=== PATIENT | female | born 1935 | race African-American/Black ===

== ENCOUNTER 2022-11-14 16:07 | Emergency (ER) | payer OTHER, MEDICAID ==
[~2022-11-14] VITALS: Ht 167.6 cm; Wt 65.8 kg
[2022-11-14 17:26] VITALS: BP 156/102
--- NOTE | 2022-11-14 17:36 | NUR ---
DAUGHTER STATES PT RELUCTANT SEE PMD'S THROUGHOUT HER LIFE. SKEPTICAL OF HEALTH CARE. DAUGHTER STATES SUDDEN LOSS OF VISION COMPLETELY 3 YEARS AGO. PT REFUSED TO BE SEEN BY DOCTOR.
[2022-11-14] MEDS ORDERED: NACL 0.9% 1,000 ML IV ONE (18:50)
--- NOTE | 2022-11-14 19:36 | NUR ---
PT TAKEN TO BED 1
[2022-11-14 19:47] LABS: BASOPHILS % (AUTO) 0.4 % (0.0-2.0); EOSINOPHILS % (AUTO) 0.2 % (0.0-4.0); HEMATOCRIT 43.6 % (36-48); HEMOGLOBIN 14.6 g/dL (12.0-16.0); LYMPHOCYTES # (AUTO) 1.5 K/uL (2.5-16.5); LYMPHOCYTES % (AUTO) 15.9 % (20.5-51.1); MEAN CORPUSCULAR HEMOGLOBIN 30 pg (27-31); MEAN CORPUSCULAR HGB CONC 33 g/dL (33-37); MEAN CORPUSCULAR VOLUME 90.8 fL (80-94); MONOCYTES # (AUTO) 0.6 K/uL (0.8-1.0); MONOCYTES % (AUTO) 6.2 % (1.7-9.3); NEUTROPHILS # (AUTO) 7.3 K/uL (1.8-7.7); NEUTROPHILS % (AUTO) 77.3 % (42.2-75.2); PLATELET COUNT (AUTO) 177 K/uL (140-450); RED CELL DISTRIBUTION WIDTH 13.8 % (11.6-13.7); WHITE BLOOD COUNT (AUTO) 9.5 K/uL (4.8-10.8)
--- NOTE | 2022-11-14 20:01 | NUR ---
Patient resting in bed, A/Ox4, chest rise and fall symmetrical, no c/o pain or s/s of distress, patient on monitor.
[2022-11-14 20:06] LABS: ALBUMIN 3.8 g/dL (3.4-5.0); ANION GAP 12.2 (8-16); ASPARTATE AMINOTRANSFERASE 115 U/L (15-37); CHLORIDE 105 mmol/L (98-107); CREATININE 0.7 mg/dL (0.6-1.3); GLUCOSE 109 mg/dL (74-106); POTASSIUM 3.2 mmol/L (3.5-5.1); SODIUM SERUM 143 mmol/L (136-145); TOTAL BILIRUBIN 0.9 mg/dL (0.0-1.0); UREA NITROGEN, BLOOD 20 mg/dL (7-18)
[2022-11-14 22:02] LABS: APPEARANCE,URINE CLEAR (CLEAR); BILIRUBIN,URINE NEGATIVE (NEGATIVE); BLOOD, URINE NEGATIVE (NEGATIVE); COLOR,URINE YELLOW (YELLOW); LEUKOCYTE ESTERASE ,URINE 1+ (NEGATIVE); NITRITE, URINE NEGATIVE (NEGATIVE); UGLUCOSE NEGATIVE (NEGATIVE)
--- NOTE | 2022-11-14 22:30 | NUR ---
Patient resting in bed, A/Ox4, chest rise and fall symmetrical, no c/o pain or s/s of distress, patient on monitor.
[2022-11-14] MEDS ORDERED: cefTRIAXone 1,000 MG VIAL ONE (22:54)
--- NOTE | 2022-11-14 23:00 | NUR ---
Patient resting in bed, A/Ox4, chest rise and fall symmetrical, no c/o pain or s/s of distress, patient on monitor.
--- NOTE | 2022-11-14 23:00 | NUR ---
Dr. Vallecillo verbally informed patient's left first toe is purple in color. Dr. Vallecillo verbalized understanding.
--- NOTE | 2022-11-14 23:21 | NUR ---
Dr. Pearce at bedside speaking with patient. Addendum: 11/14/22 at [id number] Pearce at bedside speaking with patient's daughter and patient.
--- NOTE | 2022-11-15 00:08 | NUR ---
Patient resting in bed, A/Ox4, chest rise and fall symmetrical, no c/o pain or s/s of distress, patient on monitor.
[2022-11-15] MEDS ORDERED: FURO-572 PO (01:58)
[2022-11-15] MEDS ORDERED: NAPR-1704 PO ×2 (01:58→02:52)
[2022-11-15] MEDS ORDERED: PANT40EC PO (01:58)
[2022-11-15] MEDS ORDERED: SPIR50TA PO (01:58)
--- NOTE | 2022-11-15 02:30 | NUR ---
Patient resting in bed, A/Ox4, chest rise and fall symmetrical, no c/o pain or s/s of distress, patient on monitor.
[2022-11-15] MEDS ORDERED: NITR100C7 PO (02:52)
[2022-11-15 03:00] VITALS: BP 132/85
--- NOTE | 2022-11-15 03:39 | NUR ---
Patient discharged with v/s stable. Written and verbal after care instructions given and explained. Patient alert, oriented and verbalized understanding of instructions. Ambulatory with steady gait. All questions addressed prior to discharge. ID band removed. Patient advised to follow up with PMD. Rx given patient's daughter. Patient educated on indication of medication including possible reaction and side effects. Opportunity to ask questions provided and answered.
== END 2022-11-15 03:39 | disposition home or self-care (01) ==
LOC: MED 16:07
DX: N39.0 Urinary tract infection, site not specified (principal); Z79.899 Other long term (current) drug therapy; Z79.1 Long term (current) use of non-steroidal anti-inflammatories (NSAID); Z79.2 Long term (current) use of antibiotics
CPT/HCPCS: 36415; 71045; 72192; 73630; 80053; 81003; 83605; 85025; 87040; 87086; 93005; 96361; 96365; 99285; J0696; J7030; Q0092